=== PATIENT | female | born 1990 | race Caucasian/White ===

== ENCOUNTER → 2025-02-05 | Outpatient (CLI) | payer BC, SELFPAY ==
[2025-02-05 10:25] LABS: Anion Gap 11 (7-16); BUN/Creatinine Ratio 17 Ratio (12-20); Blood Urea Nitrogen 15 mg/dL (9-23); Calcium 9.4 mg/dL (8.3-10.6); Carbon Dioxide 24.1 mMol/L (20.0-31.0); Chloride 105 mMol/L (98-107); Creatinine (Component) 0.9 mg/dL (0.6-1.3); Glucose 102 mg/dL (74-106); Osmolality,Calculated 280 (275-295); Potassium 4.1 mMol/L (3.4-5.1); Sodium 140 mMol/L (136-145); eGFR > 60 See Note
== END | disposition home or self-care (01) ==
LOC: COPL 08:22
PROVIDERS: PCP Family Medicine; Referring Provider Family Medicine; Visit Provider Family Medicine
DX: L68.0 Hirsutism (principal)
CPT/HCPCS: 36415; 80048